=== PATIENT | female | born 1960 | race Caucasian/White ===

== ENCOUNTER 2018-09-26 16:26 | Emergency (ER) | payer SELFPAY ==
[~2018-09-26] VITALS: Ht 160 cm; Wt 107.6 kg
[2018-09-26 17:09] VITALS: BP 178/78
--- NOTE | 2018-09-26 18:21 | NUR ---
Discharge instructions discussed with patient including when to return to emergency department, verbalizes understanding. Prescription provided with instruction for use. Incentive spirometer and spacer provided with instruction for use, patient demonstrates appropriate use. Patient ambulates with steady gait to discharge desk in no acute distress.
== END 2018-09-26 18:24 | disposition home or self-care (01) ==
LOC: ED 18:04
DX: J18.9 Pneumonia, unspecified organism (principal); H69.82 Other specified disorders of Eustachian tube, left ear; J45.909 Unspecified asthma, uncomplicated; F17.200 Nicotine dependence, unspecified, uncomplicated
CPT/HCPCS: 71046; 99283

== ENCOUNTER 2018-12-31 12:43 | Emergency (ER) | payer SELFPAY ==
[~2018-12-31] VITALS: Ht 160 cm; Wt 105.7 kg
[2018-12-31 12:46] VITALS: BP 162/87
== END 2018-12-31 13:46 | disposition home or self-care (01) ==
LOC: ED 13:26
DX: H04.321 Acute dacryocystitis of right lacrimal passage (principal); J01.00 Acute maxillary sinusitis, unspecified; J45.909 Unspecified asthma, uncomplicated
CPT/HCPCS: 99283

== ENCOUNTER 2019-08-23 04:08 | Emergency (ER) | payer SELFPAY ==
[~2019-08-23] VITALS: Ht 160 cm; Wt 109.6 kg
[2019-08-23] MEDS ORDERED: SODIUM CHLORIDE 0.9% 1,000ML IVBOLUS ONE (04:30)
[2019-08-23] MEDS ORDERED: ALBUTEROL 0.5%, 20ML NPPB SCH (04:30)
[2019-08-23] MEDS ORDERED: ALBUTEROL/IPRATROPIUM 2.5MG/0.5MG, 3 ML ONE (04:41)
--- NOTE | 2019-08-23 05:01 | NUR ---
POC DISCUSSED BY ARNAV. INFORMED PT SHE NEEDS TO BE ADMITTED. PT STATES THERE IS NO WAY SHE CAN MISS WORK TODAY. ARNAV AND THIS RN EDUCATED PT ON RISKS OF REFUSING ADMIT. PT STATES UNDERSTANDING. PT WAS OFFERED AND ACCEPTED THE CHOICE TO THINKING IT OVER WHILST THE LAB WORK AND RADIOLOGY ARE PENDING. PT GIVEN CALL LIGHT AND EDUCATED ON USE. PT DENIES CURRENT NEEDS.
[2019-08-23 05:16] LABS: BASOPHILS # (AUTO) 0.06 x10^3/uL (0-0.1); BASOPHILS % (AUTO) 1 % (0-1); EOSINOPHILS # (AUTO) 0.17 x10^3/uL (0-0.4); EOSINOPHILS % (AUTO) 1 % (1-7); LYMPHOCYTES # (AUTO) 2.49 x10^3/uL (1-3.4); LYMPHOCYTES % (AUTO) 21 % (22-44); MD NO; MEAN CORPUSCULAR HGB CONC 32.3 g/dL (32.4-35.8); MEAN CORPUSCULAR VOLUME 89.8 fL (80-100); MEAN PLATELET VOLUME 8.7 fL (7.4-10.4); MONOCYTES # (AUTO) 1.11 x10^3/uL (0.2-0.8); MONOCYTES % (AUTO) 9 % (2-9); NEUTROPHILS # (AUTO) 8.36 x10^3/uL (1.8-6.8); NEUTROPHILS % (AUTO) 69 % (42-75); PLATELET COUNT 192 x10^3/uL (130-400); RED BLOOD COUNT 6.02 x10^6/uL (3.82-5.3); RED CELL DISTRIBUTION WIDTH 14.2 % (9.6-15.2)
[2019-08-23 05:22] LABS: ALANINE AMINOTRANSFERASE 15 U/L (12-78); ALBUMIN 3.7 g/dL (3.4-5.0); ANION GAP 3 mmol/L (5-15); CALCIUM 8.9 mg/dL (8.5-10.1); CHLORIDE 103 mmol/L (98-107)
[2019-08-23 05:25] LABS: ALKALINE PHOSPHATASE 108 U/L (45-117); BILIRUBIN,TOTAL 0.8 mg/dL (0.2-1.0); TOTAL PROTEIN 7.7 g/dL (6.4-8.2); TROPONIN I < 0.015 ng/mL (0.000-0.045)
--- NOTE | 2019-08-23 05:54 | NUR ---
ER MD AND THIS RN BACK TO BEDSIDE TO DISCUSS POC. ERMD SPOKE AT LENGTH ABOUT RISKS OF REFUSING CARE, UP TO AND INCLUDING OR PERMINENT DISABILITY. PT STATES SHE UNDERSTANDS THESE RISKS. PT WAS OFFERED A WORK FOR ADMISSION NOTE WHICH SHE DECLINED. PT SIGNED AMA. IV DC'D. AWAITING DC PAPERWORK AT THIS TIME.
[2019-08-23 05:57] VITALS: BP 132/74
--- NOTE | 2019-08-23 06:01 | NUR ---
PT WAS PROVIDED WITH OXYGEN DME FORM.
== END 2019-08-23 05:57 | disposition left against medical advice (07) ==
LOC: ED 05:08
DX: J96.01 Acute respiratory failure with hypoxia (principal); J44.1 Chronic obstructive pulmonary disease with (acute) exacerbation; R00.0 Tachycardia, unspecified; R09.02 Hypoxemia; F17.200 Nicotine dependence, unspecified, uncomplicated
CPT/HCPCS: 36415; 71045; 80053; 83605; 83880; 84145; 84484; 85025; 87040; 93005; 94640; 99291; J7030

== ENCOUNTER 2020-02-13 19:12 | Inpatient (IN) | payer MEDICAID ==
[~2020-02-13] VITALS: Ht 160 cm; Wt 118.8 kg
--- NOTE | 2020-02-13 19:46 | NUR ---
Pt placed on O2 and spO2 improved
[2020-02-13] MEDS ORDERED: SODIUM CHLORIDE FLUSH 10ML SYR IVF ONE (20:00)
[2020-02-13] MEDS ORDERED: ALBUTEROL/IPRATROPIUM 2.5MG/0.5MG, 3 ML NPPB ONE (20:00)
[2020-02-13] MEDS ORDERED: MAGNESIUM SULFATE 1 GM/2 ML IVPush ONE (20:00)
--- NOTE | 2020-02-13 20:00 | NUR ---
PT PRESENTS TO ROOM 38 C/O BILAT LEG SWELLING, WITH LOW ROOM AIR O2 SATS. PT WAS PLACED ON 6L NASAL CANNULA WITH IMPROVEMENT. MEDS INFUSING PER EMAR. LAB IN ROOM AT THIS TIME. PT MAINTAINING 91% WITH 4L NC. WILL CONTINUE TO TITRATE DOWN FOLLOWING DUONEB
[2020-02-13] MEDS ORDERED: ALBUTEROL/IPRATROPIUM 2.5MG/0.5MG, 3 ML ONE (20:17)
[2020-02-13] MEDS ORDERED: MAGNESIUM SULFATE/D5W 100 ML IVPB ONE (20:30)
[2020-02-13 20:55] LABS: MEAN CORPUSCULAR HGB CONC 30.9 g/dL (32.4-35.8); MEAN PLATELET VOLUME 8.3 fL (7.4-10.4); PLATELET COUNT 182 x10^3/uL (130-400); RED BLOOD COUNT 5.53 x10^6/uL (3.82-5.3); RED CELL DISTRIBUTION WIDTH 16.7 % (9.6-15.2)
[2020-02-13 21:03] LABS: ALANINE AMINOTRANSFERASE 40 U/L (12-78); ALBUMIN 2.8 g/dL (3.4-5.0); ANION GAP 5 mmol/L (5-15); CHLORIDE 103 mmol/L (98-107); CREATININE 0.85 mg/dL (0.55-1.02)
[2020-02-13 21:05] LABS: D-DIMER 0.81 ug/mlFEU (0.00-0.52); INTERNATIONAL NORMALIZED RATIO 1.01 (0.93-1.1); PROTHROMBIN TIME 10.7 Seconds (9.6-11.5)
[2020-02-13] MEDS ORDERED: CEFTRIAXONE PMX 1GM/50ML 50 ML ONE (21:06)
[2020-02-13 21:07] LABS: ALKALINE PHOSPHATASE 90 U/L (45-117); BILIRUBIN,TOTAL 0.9 mg/dL (0.2-1.0); TOTAL PROTEIN 7.4 g/dL (6.4-8.2); TROPONIN I < 0.015 ng/mL (0.000-0.045)
[2020-02-13 21:21] LABS: BASOPHILS # (AUTO) 0.02 x10^3/uL (0-0.1); BASOPHILS % (AUTO) 0 % (0-1); EOSINOPHILS # (AUTO) 0.15 x10^3/uL (0-0.4); EOSINOPHILS % (AUTO) 1 % (1-7); LYMPHOCYTES # (AUTO) 1.48 x10^3/uL (1-3.4); LYMPHOCYTES % (AUTO) 14 % (22-44); MD SCAN; MONOCYTES # (AUTO) 0.67 x10^3/uL (0.2-0.8); MONOCYTES % (AUTO) 6 % (2-9); NEUTROPHILS # (AUTO) 8.39 x10^3/uL (1.8-6.8); NEUTROPHILS % (AUTO) 78 % (42-75)
[2020-02-13] MEDS ORDERED: DOXYCYCLINE 100 MG in DEXTROSE 5% 250 ML IV SCH (21:30)
[2020-02-13] MEDS ORDERED: CEFTRIAXONE PMX 1GM/50ML 50 ML IV ONE (21:30)
[2020-02-13 22:24] VITALS: BP 119/71
[2020-02-13] MEDS ORDERED: FUROSEMIDE 20 MG/2 ML IV ONE (23:30)
[2020-02-13] MEDS: DOXYCYCLINE 100 MG in DEXTROSE 5% 250 ML IV SCH (23:30)
[2020-02-13] MEDS ORDERED: POLYETHYLENE GLYCOL 17 GM PACKET PO PRN (23:30)
[2020-02-13] MEDS ORDERED: GUAIFENESIN/DM 200-20MG, 10ML UDC PO PRN (23:30)
[2020-02-13] MEDS ORDERED: ACETAMINOPHEN 325 MG TABLET PO PRN (23:30)
[2020-02-13] MEDS: SODIUM CHLORIDE FLUSH 10ML SYR IVF SCH (23:30)
[2020-02-13] MEDS ORDERED: BISACODYL 10 MG SUPP PR PRN (23:30)
[2020-02-13] MEDS ORDERED: ONDANSETRON ODT 4 MG PO PRN (23:30)
[2020-02-14] MEDS ORDERED: ALBUTEROL HFA 90 MCG/SPRAY INH PRN
[2020-02-14] MEDS: HEPARIN 5,000 UNITS/ML, 1ML SQ SCH ×3 (00:22→16:17)
[2020-02-14 00:37] VITALS: BP 117/78
[2020-02-14 07:17] VITALS: BP 127/84
[2020-02-14 07:57] LABS: CHLORIDE 102 mmol/L (98-107)
[2020-02-14 07:58] LABS: MEAN CORPUSCULAR HEMOGLOBIN 27.9 pg (27.0-34.8); MEAN CORPUSCULAR HGB CONC 30.4 g/dL (32.4-35.8); MEAN PLATELET VOLUME 7.8 fL (7.4-10.4); PLATELET COUNT 217 x10^3/uL (130-400); RED BLOOD COUNT 5.51 x10^6/uL (3.82-5.3); RED CELL DISTRIBUTION WIDTH 16.4 % (9.6-15.2)
[2020-02-14] MEDS: SENNA/DOCUSATE TABLET PO SCH (08:03)
[2020-02-14] MEDS: SODIUM CHLORIDE FLUSH 10ML SYR IVF SCH ×2 (08:03→21:27)
[2020-02-14 08:04] LABS: ANION GAP 2 mmol/L (5-15); CALCIUM 9.1 mg/dL (8.5-10.1); CREATININE 0.88 mg/dL (0.55-1.02)
[2020-02-14 08:44] LABS: BASOPHILS # (AUTO) 0.12 x10^3/uL (0-0.1); BASOPHILS % (AUTO) 1 % (0-1); EOSINOPHILS # (AUTO) 0.16 x10^3/uL (0-0.4); EOSINOPHILS % (AUTO) 2 % (1-7); LYMPHOCYTES # (AUTO) 1.72 x10^3/uL (1-3.4); LYMPHOCYTES % (AUTO) 17 % (22-44); MD SCAN; MONOCYTES # (AUTO) 1.05 x10^3/uL (0.2-0.8); MONOCYTES % (AUTO) 10 % (2-9); NEUTROPHILS # (AUTO) 7.16 x10^3/uL (1.8-6.8); NEUTROPHILS % (AUTO) 70 % (42-75)
[2020-02-14] MEDS: DOXYCYCLINE 100 MG in DEXTROSE 5% 250 ML IV SCH (11:39)
[2020-02-14 12:50] VITALS: BP 123/71
[2020-02-14] MEDS: methylPREDNISolone SOD SUCC 125 MG/2 ML IVPush SCH (16:00)
[2020-02-14] MEDS: FUROSEMIDE 20 MG/2 ML IV SCH (16:17)
[2020-02-14] MEDS: FAMOTIDINE 20 MG TABLET PO SCH (21:27)
[2020-02-14] MEDS: CEFTRIAXONE PMX 1GM/50ML 50 ML IV SCH ×2 (21:28→23:31)
[2020-02-14 21:37] VITALS: BP 120/74
[2020-02-15] MEDS: HEPARIN 5,000 UNITS/ML, 1ML SQ SCH ×2 (01:10→08:25)
[2020-02-15] MEDS: methylPREDNISolone SOD SUCC 125 MG/2 ML IVPush SCH ×2 (01:10→08:00)
[2020-02-15] MEDS: DOXYCYCLINE 100 MG in DEXTROSE 5% 250 ML IV SCH (01:10)
[2020-02-15 02:21] VITALS: BP 136/83
[2020-02-15 06:37] LABS: ANION GAP 4 mmol/L (5-15); CALCIUM 8.8 mg/dL (8.5-10.1); CHLORIDE 100 mmol/L (98-107); CREATININE 0.77 mg/dL (0.55-1.02)
[2020-02-15 07:41] VITALS: BP 101/62
[2020-02-15] MEDS: SODIUM CHLORIDE FLUSH 10ML SYR IVF SCH ×2 (08:24→20:38)
[2020-02-15] MEDS: FUROSEMIDE 20 MG/2 ML IV SCH (08:25)
[2020-02-15] MEDS: FAMOTIDINE 20 MG TABLET PO SCH ×2 (08:25→20:15)
[2020-02-15] MEDS: SENNA/DOCUSATE TABLET PO SCH (08:28)
[2020-02-15] MEDS ORDERED: ENOXAPARIN 120MG/0.8ML SQ SCH (10:00)
[2020-02-15] MEDS ORDERED: AMOXICILLIN/CLAV 875-125MG TABLET ONE (10:35)
[2020-02-15] MEDS: AMOXICILLIN/CLAV 875-125MG TABLET PO SCH ×2 (10:48→20:14)
[2020-02-15 13:24] VITALS: BP 101/65
[2020-02-15 19:07] VITALS: BP 129/81
[2020-02-16 00:31] VITALS: BP 108/63
[2020-02-16] MEDS: FAMOTIDINE 20 MG TABLET PO SCH (08:27)
[2020-02-16] MEDS: AMOXICILLIN/CLAV 875-125MG TABLET PO SCH (08:27)
[2020-02-16] MEDS: SODIUM CHLORIDE FLUSH 10ML SYR IVF SCH (08:28)
[2020-02-16] MEDS: SENNA/DOCUSATE TABLET PO SCH (08:28)
[2020-02-16 09:02] VITALS: BP 127/76
[2020-02-16] MEDS ORDERED: ALBU18HF INH (11:48)
[2020-02-16] MEDS ORDERED: LACT1CAP35 PO (11:48)
[2020-02-16] MEDS ORDERED: AMOX1TAB12 PO (11:48)
[2020-02-16] MEDS ORDERED: HYDR12.517 PO (12:13)
== END 2020-02-16 15:58 | disposition home or self-care (01) | DRG 193 ==
LOC: ED 20:37 → EDIP 22:10 → 4EST 22:13 → 4NW 02-15 20:53 → DCLOUNGE 02-16 15:47
PROVIDERS: ADMIT Family Medicine; ATTEND Hospitalist
DX: J18.9 Pneumonia, unspecified organism (principal); J96.01 Acute respiratory failure with hypoxia; E87.2 Acidosis; J44.0 Chronic obstructive pulmonary disease with (acute) lower respiratory infection; J44.1 Chronic obstructive pulmonary disease with (acute) exacerbation; Z68.42 Body mass index [BMI] 45.0-49.9, adult; Z20.828 Contact with and (suspected) exposure to other viral communicable diseases; E66.01 Morbid (severe) obesity due to excess calories; F17.210 Nicotine dependence, cigarettes, uncomplicated; I27.20 Pulmonary hypertension, unspecified; H04.309 Unspecified dacryocystitis of unspecified lacrimal passage; H69.80 Other specified disorders of Eustachian tube, unspecified ear; Z98.891 History of uterine scar from previous surgery; Z88.8 Allergy status to other drugs, medicaments and biological substances; Z78.9 Other specified health status; Z88.1 Allergy status to other antibiotic agents; J45.909 Unspecified asthma, uncomplicated
CPT/HCPCS: 36415; 36600; 71045; 80048; 80053; 82803; 83605; 83880; 84145; 84484; 85025; 85379; 85610; 85730; 87040; 87635; 93005; 93306; 94640; 96365; 99285; 99291; G0378; J0696; J1644; J7060; J1940

== ENCOUNTER → 2020-08-14 | Outpatient (CLI) | payer MEDICAID ==
[~2020-08-14] MED LIST: ALBU18HF INH; AMOX1TAB12 PO; HYDR12.517 PO; LACT1CAP35 PO
== END | disposition home or self-care (01) ==
LOC: ROC 07:09
PROVIDERS: ATTEND Radiology Radiation Oncology
DX: C51.9 Malignant neoplasm of vulva, unspecified (principal); F17.210 Nicotine dependence, cigarettes, uncomplicated
CPT/HCPCS: 99214; G0463

== ENCOUNTER 2020-10-23 07:18 | Outpatient (CLI) | payer MEDICAID ==
[~2020-10-23 07:18] MED LIST changes: +AMOX-291 PO; +AMOX1TAB64 PO; +TIOT4MIS5 INH
== END 2020-10-23 23:59 | disposition home or self-care (01) ==
LOC: ROC 07:18
PROVIDERS: ATTEND Radiology Radiation Oncology
DX: Z08 Encounter for follow-up examination after completed treatment for malignant neoplasm (principal); C51.9 Malignant neoplasm of vulva, unspecified; Z87.891 Personal history of nicotine dependence
CPT/HCPCS: 99212; G0463

== ENCOUNTER 2020-11-08 07:36 | Outpatient (CLI) | payer MEDICAID | END 2020-11-08 23:59 | disposition home or self-care (01) | LOC: ROC 07:36 | PROVIDERS: ATTEND Radiology Radiation Oncology | DX: Z08 Encounter for follow-up examination after completed treatment for malignant neoplasm (principal); C51.9 Malignant neoplasm of vulva, unspecified; Z87.891 Personal history of nicotine dependence | CPT/HCPCS: 99212; G0463 ==

== ENCOUNTER → 2020-12-06 | Outpatient (CLI) | payer MEDICAID | END | disposition home or self-care (01) | LOC: ROC 07:07 | PROVIDERS: ATTEND Radiology Radiation Oncology | DX: Z08 Encounter for follow-up examination after completed treatment for malignant neoplasm (principal); C51.9 Malignant neoplasm of vulva, unspecified; Z87.891 Personal history of nicotine dependence | CPT/HCPCS: 99213; G0463 ==

== ENCOUNTER → 2021-01-30 | Outpatient (CLI) | payer MEDICAID | END | disposition home or self-care (01) | LOC: ROC 07:59 | PROVIDERS: ATTEND Radiology Radiation Oncology | DX: Z08 Encounter for follow-up examination after completed treatment for malignant neoplasm (principal); C51.9 Malignant neoplasm of vulva, unspecified; Z87.891 Personal history of nicotine dependence | CPT/HCPCS: 99212; G0463 ==

== ENCOUNTER 2021-04-11 08:25 | Emergency (ER) | payer MEDICAID ==
[~2021-04-11] VITALS: Ht 160 cm; Wt 93.4 kg
[2021-04-11 08:48] VITALS: BP 156/84
--- NOTE | 2021-04-11 08:58 | NUR ---
employee relations consultant note: Pt to room from lobby.
--- NOTE | 2021-04-11 09:32 | NUR ---
PT SEEN BY MD. PER PT "IM REALLY IN A HURRY" UMCOOPERATIVE WITH EXAM.
--- NOTE | 2021-04-14 13:28 | NUR ---
throughput RN: pt given negative COVID results as F/U via telephone
== END 2021-04-11 09:43 | disposition home or self-care (01) ==
LOC: ED 09:25
DX: H69.82 Other specified disorders of Eustachian tube, left ear (principal); Z20.822 Contact with and (suspected) exposure to COVID-19; J01.00 Acute maxillary sinusitis, unspecified; R51.9 Headache, unspecified; J44.9 Chronic obstructive pulmonary disease, unspecified; Z88.1 Allergy status to other antibiotic agents
CPT/HCPCS: 99283; U0003; U0005